=== PATIENT | female | born 1950 | race Caucasian/White ===

== ENCOUNTER → 2023-11-13 06:23 | Day surgery (SDC) | payer OTHER, SELFPAY | LOC: GI 06:23 | PROVIDERS: ATTENDING PHYSICIAN Internal Medicine; FAMILY PHYSICIAN Family Medicine | DX: K29.60 Other gastritis without bleeding (principal); K22.2 Esophageal obstruction; R13.10 Dysphagia, unspecified; R12 Heartburn | CPT/HCPCS: 43249; 43239; 88305; 88313; 88342 ==

== ENCOUNTER 2024-03-14 14:38 | Emergency (ER) | payer OTHER, SELFPAY ==
[2024-03-14 14:40] VITALS: BP 157/94
--- NOTE | 2024-03-14 15:35 | ED.GENMED ---
History of Present Illness
General
Chief Complaint: Musculo-Skeletal Complaint
Time Seen by Provider: 03/14/24 15:07
Travel History
Have you had any contact with someone who has COVID-19?: No
Do you have any symptoms of coronavirus? Fever > 100 degrees, chills, cough, shortness of breath, sore throat, loss of taste or smell, muscle aches, or headache?: No
History of Present Illness
History of Present Illness:
73-year-old female with history of hypertension presents to the emergency department for evaluation of left hip pain. The pain has been ongoing for several weeks but has been severe in the past 2 to 3 days. She is having difficulty walking.
Denies any recent falls or trauma. Pain is minimal at rest. Has taken Motrin without relief.
Past History
Past History
ED Past Medical History: Asthma, HTN and Other (Arthritis)
ED Past Surgical History: , Orthopedic, Tonsilectomy and Urological
Social History
Tobacco: Non-smoker
Alcohol: Occasional
Drug: None
Personal:
Living: with family
Employment: Employed
Family History
Family History: Diabetes and Hypertension
Review of Systems
Review of Systems
Allergies reviewed?: Yes
All Other Systems: ROS reviewed and negative except as documented in HPI and ROS
Phy Exam
Physical Exam
Physical Exam:
GEN: Well appearing, NAD, WDWN
HEENT: Oral mucosa moist, no scleral icterus
Cardiac: Regular rate
Lung: No respiratory distress, no tachypnea
MSK: No gross deformity or injuries. Passive range of motion of the left hip is normal with no pain. Resisted hip flexion elicits discomfort. Bilateral lower extremity strength is 5 out of 5 in all pena.
Skin: Good color, no pallor or jaundice, no rashes
Neuro: AO x3, moves all extremities freely
Psych: Calm, cooperative
Course
Orders/Labs/Results
Orders:
Orders
03/14/24 14:42
CR Hip - LT w/wo Pel 2-3 Vw* Urgent
Comment:
Reason For Exam: pain
Include a pelvis x-ray?: Yes
03/14/24 15:34
Ketorolac [Toradol] 30 mg IM NOW STA
Tramadol HCl [Ultram] 50 mg PO NOW STA
Vital Signs
Initial and Last Documented VS:
Initial Vital Signs
Temp Pulse Resp BP Pulse Ox
98.3 F 102 22 157/94 98
03/14/24 14:40 03/14/24 14:40 03/14/24 14:40 03/14/24 14:40 03/14/24 14:40
Last Documented Vital Signs
Temp Pulse Resp BP Pulse Ox
98.3 F 102 22 157/94 98
03/14/24 14:40 03/14/24 14:40 03/14/24 14:40 03/14/24 14:40 03/14/24 14:40
MDM/Problems Addressed
MDM/Problems Addressed:
Exam suggestive of left hip flexor strain, no bony tenderness, normal range of motion of the left hip without pain. X-rays left hip and pelvis are unremarkable. Recommend NSAIDs and supportive care, outpatient PT orders are written
*Critical Care Note
Total Time (30-74mins, 75-104mins- exclusive of procedures): Not Applicable
ED Attending Note
-
Portions of this chart may have been created with voice recognition software.� Occasional wrong word or��sound alike� substitutions may have occurred due to the inherent limitations of voice recognition software.
Discharge Plan
Departure
Patient Disposition: Home (Routine Discharge)
Date of Disposition: 03/14/24
Time of Disposition: 15:51
Patient with high blood pressure during this ER visit?: No
Discharge Problem:
Strain of flexor muscle of left hip
Instructions: Hip pain in adults
Prescriptions:
New
diclofenac sodium 75 mg tablet,delayed release (DR/EC)
75 mg PO BID Qty: 30 0RF
oxycodone-acetaminophen [Percocet] 5-325 mg tablet
1 tab PO Q6HPRN PRN (Reason: pain) Qty: 8 0RF
No Action
pyridoxine (vitamin B6) 50 MG tablet
50 mg PO DAILY
Patient Comments:
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
albuterol sulfate 18 GM HFA aerosol inhaler
1 - 2 puff inhalation R Q4HPRN PRN (Reason: asthma symptoms)
cholecalciferol (vitamin D3) 2,000 UNITS tablet
2,000 units PO DAILY
multivitamin with folic acid [Tab-A-Shirlene] 1 TABLET tablet
1 tab PO DAILY
alprazolam 0.5 MG tablet
0.25 mg PO DAILY
alprazolam 0.5 MG tablet
0.5 mg PO HS
amitriptyline 10 MG tablet
10 mg PO HS
vitamins A,C,[id number] [PreserVision AREDS] 1 CAP capsule
1 cap PO DAILY
hydrocodone-acetaminophen 1 TABLET tablet
1 - 2 tab PO Q4HPRN PRN (Reason: moderate to severe pain) Qty: 20 0RF
hydrocodone-acetaminophen [Vicodin HP] 10-300 mg tablet
1 tab PO Q8H PRN (Reason: pain) Qty: 7 0RF
hydrocodone-acetaminophen [Vicodin HP] 10-300 mg tablet
1 tab PO Q8H PRN (Reason: pain) Qty: 10 0RF
oxycodone-acetaminophen [Percocet] 5-325 mg Tablet
1 tab PO Q6HPRN PRN (Reason: pain) Qty: 14 0RF
Referrals:
Sudha Vasquez MD [Family Provider] -
Activity Restrictions/Additional Instructions:
Schedule an appointment with physical therapy as we discussed
Follow up with Orthopedics if your pain does not improve
Interventions
Interventions:
*Risk Screen - Suicide Last Done: 03/14/24 14:40
*General Assessment Last Done: 03/14/24 14:40
*Neglect/Abuse Screening Last Done: 03/14/24 14:40
ED- Fall Risk Assessment Last Done: 03/14/24 16:01
*ED COVID-19 Vaccine History Last Done: 03/14/24 16:01
*Nursing Disposition Last Done: 03/14/24 16:01
ED-Musculoskeletal Assessment Last Done: 03/14/24 16:01
Discharge Date and Time
Discharge Date/Time: 03/14/24 16:02
Print Language: L[place]
[2024-03-14] MEDS: ULTRAM 50 MG PO (15:47)
[2024-03-14] MEDS: TORADOL 30 MG IM (15:48)
== END 2024-03-14 16:02 | disposition home or self-care (01) ==
LOC: EMR 14:38
PROVIDERS: EMERGENCY PHYSICIAN Emergency Medicine; FAMILY PHYSICIAN Family Medicine
DX: S76.012A Strain of muscle, fascia and tendon of left hip, initial encounter (principal); X58.XXXA Exposure to other specified factors, initial encounter; I10 Essential (primary) hypertension; J45.909 Unspecified asthma, uncomplicated; M19.90 Unspecified osteoarthritis, unspecified site; Z88.2 Allergy status to sulfonamides; Z91.040 Latex allergy status
CPT/HCPCS: 99284; 96372; 73502

== ENCOUNTER 2024-03-24 18:00 | Outpatient (RCR) | payer OTHER, SELFPAY | END 2024-03-24 23:59 | disposition home or self-care (01) | LOC: RPT 18:00 | PROVIDERS: ATTENDING PHYSICIAN Family Medicine | DX: S76.012D Strain of muscle, fascia and tendon of left hip, subsequent encounter (principal); M25.552 Pain in left hip; M54.50 Low back pain, unspecified; R26.2 Difficulty in walking, not elsewhere classified; M62.81 Muscle weakness (generalized) | CPT/HCPCS: 97010; 97110; 97116; 97140; 97162; 97530 ==

== ENCOUNTER → 2024-05-07 06:49 | Outpatient (REF) | payer OTHER, SELFPAY | LOC: PAVMRI 06:49 | PROVIDERS: ATTENDING PHYSICIAN Specialist; FAMILY PHYSICIAN Family Medicine | DX: M25.552 Pain in left hip (principal); S32.402A Unspecified fracture of left acetabulum, initial encounter for closed fracture | CPT/HCPCS: 73721 ==

== ENCOUNTER → 2024-08-20 14:56 | Outpatient (REF) | payer OTHER, SELFPAY | LOC: HWRAD 14:56 | PROVIDERS: ATTENDING PHYSICIAN Obstetrics & Gynecology; FAMILY PHYSICIAN Family Medicine | DX: N39.0 Urinary tract infection, site not specified (principal) | CPT/HCPCS: 76770 ==

== ENCOUNTER → 2024-08-29 12:47 | Outpatient (REF) | payer OTHER, SELFPAY | LOC: HWRAD 12:47 | PROVIDERS: ATTENDING PHYSICIAN Urology; FAMILY PHYSICIAN Family Medicine | DX: N20.0 Calculus of kidney (principal); N39.0 Urinary tract infection, site not specified | CPT/HCPCS: 74176 ==

== ENCOUNTER 2024-09-23 06:13 | Day surgery (SDC) | payer OTHER, SELFPAY ==
[2024-09-16 09:03] LABS: Hematocrit 33.4 % (37.0-47.0); Hemoglobin 11.5 g/dL (12.0-16.0); Mean Corp Hgb Conc. 34.4 g/dL (33.0-37.0); Mean Corpuscular Hgb 31.3 pg (27.0-31.0); Mean Corpuscular Volume 90.8 fL (81.0-99.0); Mean Platelet Volume 9.9 fL (7.4-10.4); Platelet Count 249 10^3/uL (130-400); Red Blood Cell Count 3.68 10^6/uL (4.20-5.40); Red Cell Dist. Width 13.4 % (11.5-14.5)
[2024-09-16 10:24] VITALS: BMI 29.9
[2024-09-16 10:29] LABS: Blood Urea Nitrogen 28 mg/dl (7-17); Calcium 9.5 mg/dl (8.4-10.2); Carbon Dioxide 29 mmol/L (22-30); Chloride 103 mmol/L (98-107); Estimated Creatinine Clearance 73 ml/min; Glucose 110 mg/dl (70-99); Potassium 4.5 mmol/L (3.5-5.1); Sodium 142 mmol/L (135-145); eGFR > 60.00
[2024-09-23] VITALS (9 sets, daily range): BP systolic 116–155; BP diastolic 67–83; BMI 29.9
[2024-09-23] MEDS: NORMOSOL-R/PLASMALYTE-A 1000 IV (08:25)
[2024-09-23] MEDS: TYLENOL 1000 MG PO (08:53)
[2024-09-23] MEDS: Pyridium 200 MG PO (11:05)
[2024-09-23] MEDS: DEMEROL 12.5 MG IV ×2 (11:06→11:17)
[2024-09-23] MEDS: MOTRIN 600 MG PO (12:44)
[2024-09-27 15:32] LABS: Stone Analysis Mass 43 mg
== END 2024-09-23 13:00 | disposition home or self-care (01) ==
LOC: SDS 06:13
PROVIDERS: ATTENDING PHYSICIAN Urology; FAMILY PHYSICIAN Family Medicine
DX: N20.0 Calculus of kidney (principal)
CPT/HCPCS: 52356; 36415; 74018; 76000; 80048; 82365; 85027; 93005; A4300; C1758; C1769; C1894; C2617

== ENCOUNTER → 2025-04-02 13:00 | Outpatient (REF) | payer OTHER, SELFPAY | LOC: HWRAD 13:00 | PROVIDERS: ATTENDING PHYSICIAN Urology; FAMILY PHYSICIAN Family Medicine | DX: N20.0 Calculus of kidney (principal); N39.0 Urinary tract infection, site not specified | CPT/HCPCS: 76775 ==

== ENCOUNTER 2025-04-24 06:34 | Day surgery (SDC) | payer OTHER, SELFPAY ==
[2025-04-22 09:08] VITALS: BMI 31.2
[2025-04-22 10:54] LABS: Hematocrit 36.1 % (37.0-47.0); Hemoglobin 12.0 g/dL (12.0-16.0); Mean Corp Hgb Conc. 33.2 g/dL (33.0-37.0); Mean Corpuscular Volume 90.5 fL (81.0-99.0); Platelet Count 249 10^3/uL (130-400); Red Cell Dist. Width 12.6 % (11.5-14.5)
[2025-04-22 13:07] LABS: Blood Urea Nitrogen 19 mg/dl (7-17); Calcium 10.1 mg/dl (8.4-10.2); Carbon Dioxide 31 mmol/L (22-30); Chloride 106 mmol/L (98-107); Estimated Creatinine Clearance 72 ml/min; Glucose 92 mg/dl (70-99); Potassium 4.3 mmol/L (3.5-5.1); Sodium 139 mmol/L (135-145); eGFR > 60.00
[2025-04-24] VITALS (9 sets, daily range): BP systolic 109–159; BP diastolic 62–95; BMI 31.2
[2025-04-24] MEDS: NORMOSOL-R/PLASMALYTE-A 1000 IV (12:11)
[2025-04-24] MEDS: SUBLIMAZE 50 MCG IV (15:19)
[2025-04-24] MEDS: SUBLIMAZE 25 MCG IV (15:31)
[2025-04-24] MEDS: ROXICODONE 5 MG PO (16:30)
[2025-04-29 11:22] LABS: Stone Analysis Mass 9 mg
== END 2025-04-24 17:06 | disposition home or self-care (01) ==
LOC: SDS 06:34
PROVIDERS: ATTENDING PHYSICIAN Urology; FAMILY PHYSICIAN Family Medicine
DX: N20.2 Calculus of kidney with calculus of ureter (principal); N13.6 Pyonephrosis
CPT/HCPCS: 52356; 36415; 74018; 76000; 80048; 82365; 85027; 93005; A4300; C1726; C1894; C2617

== ENCOUNTER → 2025-05-28 07:26 | Outpatient (REF) | payer OTHER, SELFPAY | LOC: HWRAD 07:26 | PROVIDERS: ATTENDING PHYSICIAN Surgery; FAMILY PHYSICIAN Family Medicine | DX: N20.0 Calculus of kidney (principal) | CPT/HCPCS: 76775 ==

== ENCOUNTER → 2025-06-22 10:23 | Outpatient (REF) | payer OTHER, SELFPAY | LOC: RAD 10:23 | PROVIDERS: ATTENDING PHYSICIAN Urology; FAMILY PHYSICIAN Family Medicine | DX: N20.0 Calculus of kidney (principal); Z87.448 Personal history of other diseases of urinary system; N13.5 Crossing vessel and stricture of ureter without hydronephrosis | CPT/HCPCS: 78708; A9539 ==

== ENCOUNTER 2025-07-28 06:11 | Day surgery (SDC) | payer OTHER, SELFPAY ==
[2025-07-25 10:47] LABS: Hematocrit 32.7 % (37.0-47.0); Hemoglobin 11.0 g/dL (12.0-16.0); Mean Corp Hgb Conc. 33.6 g/dL (33.0-37.0); Mean Corpuscular Volume 89.3 fL (81.0-99.0); Nucleated Red Blood Cells % 0 %; Platelet Count 239 10^3/uL (130-400); Red Cell Dist. Width 12.9 % (11.5-14.5)
[2025-07-25 11:13] LABS: Blood Urea Nitrogen 23 mg/dl (7-17); Calcium 9.2 mg/dl (8.4-10.2); Carbon Dioxide 27 mmol/L (22-30); Chloride 105 mmol/L (98-107); Glucose 90 mg/dl (70-99); Potassium 4.3 mmol/L (3.5-5.1); Sodium 140 mmol/L (135-145); eGFR > 60.00
[2025-07-28] VITALS (14 sets, daily range): BP systolic 101–141; BP diastolic 50–81; BMI 28.3
[2025-07-28] MEDS: EMEND 40 MG PO (07:14)
[2025-07-28] MEDS: NORMOSOL-R/PLASMALYTE-A 1000 IV (07:14)
--- NOTE | 2025-07-28 12:37 | W.IMMPOSTOP ---
Surgical Immed Post Op Note
-
Primary Surgeon: Dillanfer
Assisting Surgeon: -
Pre-op Diagnosis: R UPJ obstruction
Post-op Diagnosis: same
Procedure Performed: R pyeloplasty
Anesthesia Type: gen
Specimen / Cultures: none
Estimated Blood Loss: 15cc
Complications: none
Operative Findings: none
[2025-07-28] MEDS: DILAUDID 0.25 MG IV (12:55)
[2025-07-28] MEDS: TORADOL 15 MG IV ×2 (13:10→18:09)
[2025-07-28 13:43] LABS: Hematocrit 34.7 % (37.0-47.0); Hemoglobin 11.4 g/dL (12.0-16.0)
[2025-07-28] MEDS: DILAUDID 0.5 MG IV (14:03)
--- NOTE | 2025-07-28 15:30 | PTCARENOTE ---
Patient admitted from pacu post right pyeloplasty.The patient is drowsy but arousable.She rates her pain at a 6-7 out of 10.All 5 incisions are open to air without drainage.The patient is in her bed with the call sneed in place.
[2025-07-28] MEDS: LR 1000 IV (16:27)
[2025-07-28 18:25] LABS: Carbon Dioxide 28 mmol/L (22-30); Estimated Creatinine Clearance 71 ml/min; eGFR > 60.00
[2025-07-28 18:36] LABS: Blood Urea Nitrogen 16 mg/dl (7-17); Calcium 8.6 mg/dl (8.4-10.2); Chloride 102 mmol/L (98-107); Glucose 191 mg/dl (70-99); Potassium 4.5 mmol/L (3.5-5.1); Sodium 135 mmol/L (135-145)
[2025-07-28] MEDS: PEPCID 10 MG PO (19:54)
[2025-07-28] MEDS: PERCOCET 5/325 1 TABLET PO (19:54)
[2025-07-28] MEDS: SENOKOT 17.2 MG PO (19:54)
[2025-07-28] MEDS: XANAX 0.25 MG PO (21:32)
[2025-07-28] MEDS: COZAAR 25 MG PO (21:32)
[2025-07-29] MEDS: TORADOL IV (00:15)
--- NOTE | 2025-07-29 02:31 | DOWNTIME ---
There was a [employer] Downtime on 07/29/2025 from 0100 to 07/29/2025 at 0215. Downtime documentation of patient's care, including medication administrations, has been reconciled in the electronic record per guidelines. Refer to the
patient's paper chart under the miscellaneous tab to see printed paper medication records and downtime forms.
[2025-07-29 03:00] VITALS: BP 106/51
[2025-07-29] MEDS: PERCOCET 5/325 1 TABLET PO ×2 (03:26→07:36)
[2025-07-29] MEDS: TORADOL 15 MG IV ×2 (06:15→12:08)
[2025-07-29 06:23] LABS: Hematocrit 31.3 % (37.0-47.0); Hemoglobin 10.2 g/dL (12.0-16.0); Mean Corp Hgb Conc. 32.6 g/dL (33.0-37.0); Mean Corpuscular Volume 94.6 fL (81.0-99.0); Platelet Count 221 10^3/uL (130-400); Red Cell Dist. Width 12.8 % (11.5-14.5)
[2025-07-29 06:46] LABS: Blood Urea Nitrogen 14 mg/dl (7-17); Calcium 8.9 mg/dl (8.4-10.2); Carbon Dioxide 28 mmol/L (22-30); Chloride 105 mmol/L (98-107); Estimated Creatinine Clearance 62 ml/min; Glucose 97 mg/dl (70-99); Potassium 4.2 mmol/L (3.5-5.1); Sodium 136 mmol/L (135-145); eGFR > 60.00
[2025-07-29 07:05] VITALS: BP 110/61
[2025-07-29] MEDS: PEPCID 10 MG PO (07:32)
[2025-07-29] MEDS: SENOKOT 17.2 MG PO (07:32)
[2025-07-29] MEDS: XANAX 0.5 MG PO (07:32)
--- NOTE | 2025-07-29 08:33 | W.PN.URO.CBU ---
Today's Communication / Plan
-
Discharge
Assessment / Plan
-
74F POD 1 s/p R pyeloplasty
Reg diet
ambulate
PO pain control
Discharge today
Diagnosis
-
Date of Service: July 29, 2025
-
Patient Diagnosis: UPJ obstruction
Post Op Day: 1 s/p pyeloplasty
Subjective
-
pain controlled
tolerating diet
ambulated to BR
Objective
-
Vital Signs
Temp Pulse Resp BP Pulse Ox
98.0 F 74 16 110/61 95
07/29/25 07:05 07/29/25 07:05 07/29/25 07:05 07/29/25 07:05 07/29/25 07:05
Intake and Output
07/28/25 07/29/25 07/30/25
06:59 06:59 06:59
Intake Total 1270 / 1270
Output Total 1340 / 1340
Balance -70 / -70
Intake:
Oral fluids 720 / 720
IV fluids (Total) 550 / 550
Normosol 100 / 100
Output:
Urine, [place] 1340 / 1340
Laboratory Results
07/29/25 05:19
07/29/25 05:19
Physical Exam
-
General - well developed, well nourished, no acute distress
Chest - clear bilaterally
Abdomen - soft, non-tender, positive bowel sounds, no CVAT, no incisional pain or distention
Genitalia - normal
Rectal - normal
Skin - warm & dry with no rash
Neuro - AOx3, no motor deficits
Extremities - no clubbing, no cyanosis, no edema
Incision - clean, dry
Dressing - clean, dry, intact
--- NOTE | 2025-07-29 09:32 | CM ---
CM met with patient in room. Patient confirmed that her son will be picking her up from the hospital. Patient denies history of reliance on DME.
PLAN: Home with family.
[2025-07-29] MEDS: FLUZONE HIGH-DOSE 2025-26 0.5 ML IM (10:23)
[2025-07-29 11:28] VITALS: BP 121/69
== END 2025-07-29 13:18 | disposition home or self-care (01) ==
LOC: SDS 06:11
PROVIDERS: ATTENDING PHYSICIAN Urology; FAMILY PHYSICIAN Family Medicine
DX: N13.1 Hydronephrosis with ureteral stricture, not elsewhere classified (principal)
CPT/HCPCS: 50544; 36415; 80048; 85014; 85018; 85025; 85027; 86850; 86900; 86901; 90662; C2617; G0008